=== PATIENT | male | born 1995 | race Hispanic/Latino ===

== ENCOUNTER 2023-06-02 08:17 | Emergency (ER) | payer OTHER, SELFPAY ==
[2023-06-02 08:29] VITALS: BP 139/78; PULSE 85; RESP 26; TEMP 38.1; O2SAT 98
--- NOTE | 2023-06-02 08:32 | ED.ABDPAIN ---
HPI - Abdominal Pain General Chief Complaint: Abdominal Pain Stated Complaint: Abdominal Pain Time Seen by Provider: 06/02/23 08:32 Source: patient Mode of arrival: ambulatory Limitations: no limitations History of Present Illness HPI narrative: 27-year-old M With no significant medical history presents with complaint epigastric, right upper quadrant pain starting at 2:00 a.m.. Patient complains of nausea, bright red blood in stool x2, chills, fatigue. Patient works as a construction assistant. States he recently started drinking more alcohol than usual. Last night he reports that he had 6 shots, approximately 3 cocktails and then a ate several chicken sandwiches from [email or web address]. Patient is pale, bent over holding abdomen an exam room. Denies having any similar episodes of pain. all systems reviewed and negative except as noted above. Related Data Home Medications Medication Instructions Recorded Confirmed No Home Medications 06/02/23 06/02/23 Allergies Allergy/AdvReac Type Severity Reaction Status Date / Time No Known Drug Allergies Allergy Unknown Other Verified 06/02/23 08:27 Review of Systems Review of Systems: CONSTITUTIONAL: Denies fever . Reports chills, or sweats. EYES: Denies visual changes, redness, or discharge. ENT: Denies rhinorrhea, congestion, sore throat, or otalgia. CARDIOVASCULAR: Denies chest pain, palpitations, or edema. RESPIRATORY: Denies cough or dyspnea. GASTROINTESTINAL: reports abdominal pain, nausea, diarrhea with blood in stool. Denies vomiting. GENITOURINARY: Denies dysuria or hematuria. SKIN: Denies rash or itching. MUSCULOSKELETAL: Denies back pain, joint pain, or myalgia. NEUROLOGIC: Denies headache, numbness, or weakness. PSYCHIATRIC: Denies anxiety or depression. All other systems reviewed are negative, except as documented in HPI. PMFSH Comments At time of signature, agree with nursing past medical, surgical, social and family history. There is no relevant family history pertinent to the presenting complaint. Exam Narrative: GENERAL: This is a well-nourished, well-developed patient . patient is ill-appearing and pale, holding abdomen in pain. HEAD: normocephalic, atraumatic. EYES: PERRL. Sclera clear/white. Vision is grossly intact. EARS: External ears normal NOSE: External nose normal NECK: Neck supple, non-tender without lymphadenopathy, masses or thyromegaly. CARDIOVASCULAR: Regular rate and rhythm without murmurs, gallops, or rubs. RESPIRATORY: Clear to auscultation. Breath sounds equal bilaterally. No wheezes, rales, or rhonchi. GASTROINTESTINAL: Abdomen soft, nondistended. tenderness on palpation of epigastric and right upper quadrant. Bowel sounds are active. No hepato-splenomegaly, or palpable masses. SKIN: warm, Dry, intact with no suspicious lesions or rash, good texture and turgor. NEURO: awake, alert, and oriented to person, place and time. There were no obvious focal neurologic abnormalities. EXTREMITIES: No joint tenderness, effusion, or edema noted. Course Course Level of Care: Express Care Visit Vital Signs Vital signs: Vital Signs Temperature 38.1 C H 06/02/23 08:29 Pulse Rate 85 06/02/23 08:29 Respiratory Rate 26 H 06/02/23 08:29 Blood Pressure 139/78 06/02/23 08:29 Pulse Oximetry 98 06/02/23 08:29 Oxygen Delivery Room Air 06/02/23 08:29 Temperature 38.1 C H 06/02/23 08:29 Pulse Rate 85 06/02/23 08:29 Respiratory Rate 26 H 06/02/23 08:29 Blood Pressure 139/78 06/02/23 08:29 Pulse Oximetry 98 06/02/23 08:29 Oxygen Delivery Room Air 06/02/23 08:29 reviewed Transfer Transfered to: [place] Transportation: Other (private car) Transfer rationale: epigastric and RUQ pain with blood in stool, nausea, pale. Needs CT scan, labs rule out pancreatitis, gall stones. Accepting physician: Dr. Martinez MDM - Abdominal Pain MDM Narrative Medical decision making narrative: Patient is aware of diag
== END 2023-06-02 08:42 | disposition short-term general hospital (02) ==
PROVIDERS: Emergency Provider Nurse Practitioner Family
DX: R10.13 Epigastric pain (principal); K92.1 Melena
CPT/HCPCS: 99212; G0463

== ENCOUNTER 2023-06-02 08:59 | Emergency (ER) | payer OTHER, SELFPAY ==
[2023-06-02] VITALS (19 sets, daily range): BP systolic 107–147; BP diastolic 51–80; PULSE 70–90; RESP 15–24; TEMP 36.6–37.8; O2SAT 98–100
--- NOTE | ~2023-06-02 | CT_ITS ---
EXAMINATION: CT abdomen pelvis w con DATE: 06/02/2023 10:15 INDICATION: Abdominal pain TECHNIQUE: Computed tomography (CT) of the abdomen and pelvis was performed with 100 cc Omnipaque 350 intravenous contrast. The dose-length product was 787.97 mGy-cm. Automated exposure control and iter ative reconstruction technique were employed. COMPARISON: None. FINDINGS: Lung bases are unremarkable. Heart size normal. No significant pleural or pericardial effus ion. No significant vascular abnormality. No lymphadenopathy. No free air or free fluid. The liver, spleen, pancreas, adrenal glands and kidneys are unremarkable. Gallbladder is contracted. Nonobstructive bowel pattern. No acute osseous there is mild thickening of the left colon which may b e due to underdistention although mild colitis not excluded. IMPRESSION: 1. Mild thickening of the left: Which may be due to underdistention or mild early colitis. Reviewed, dictated and finalized at location A. IMPRESSION: 1. Mild thickening of the left: Which may be due to underdistention or mild ear ly colitis.
[2023-06-02] MEDS: ONDANSETRON INJ 4 MG/2 ML VIAL IV PUSH (09:37)
[2023-06-02] MEDS: SODIUM CHLORIDE 0.9% IV 2,000 ML 999 ML IV CONT (09:37)
--- NOTE | 2023-06-02 09:40 | ED.ABDPAIN ---
HPI - Abdominal Pain General Chief Complaint: Abdominal Pain Stated Complaint: RUQ pain-sent from Time Seen by Provider: 06/02/23 09:08 Source: patient Mode of arrival: ambulatory Limitations: no limitations History of Present Illness HPI narrative: 27-year-old male presents today with complaints of upper abdominal pain that started last night around 2 to 3:00 in the morning. 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 Did have some nausea and multiple bloody bowel movements per patient. Continued with upper abdominal pain today presented to the ER. Patient denies any medical history of colon issues, stomach issues, or anything similar to this happening in the past. MD elicited complaint: abdominal pain Related Data Allergies Allergy/AdvReac Type Severity Reaction Status Date / Time No Known Drug Allergies Allergy Unknown Other Verified 06/02/23 08:59 Review of Systems Review of Systems: All systems reviewed & are unremarkable except as noted in HPI and below ENT: Reports as per HPI Cardiovascular: Cardiovascular: Reports as per HPI Respiratory: Respiratory: Reports as per HPI Gastrointestinal: Gastrointestinal: Reports as per HPI Musculoskeletal: Musculoskeletal: Reports as per HPI Integumentary/Breasts: Skin/Breast: Reports as per HPI Neurologic: Reports as per HPI Psychiatric: Psychiatric: Reports as per HPI Exam Const: General: cooperative, no acute distress, alert and awake Orientation/consciousness: oriented to person, oriented to place, oriented to time and patient oriented x3 HENMT: Head: normal to inspection Ears: hearing grossly normal bilaterally, external ears normal and TM's normal bilaterally Face/Nose/Sinus: Normal external nose present and Normal nares present Mouth: Yes Normal oral and palatal mucosa present, Yes oropharynx normal and Yes moist mucous membranes Eyes: General: appearance normal, both eyes and all related structures Conjunctivae: conjunctivae normal Pupils: Equal, round and reactive pupils present EOM: EOMs intact bilaterally Neck: Neck: normal visual inspection, full ROM, no lymphadenopathy and trachea midline Chest: Chest palpation & inspection: normal inspection of the chest Resp: Effort & Inspection: normal respiratory effort and able to speak in complete sentences Auscultation: clear to auscultation bilaterally Cardio: Rate: regular rate Rhythm: regular rhythm Heart sounds: S1 normal heart sound present and S2 normal heart sound present GI: Inspection: normal to inspection GI Palp: Yes abdominal tenderness (upper abdomen), Yes Soft to palpation and Yes No hepatosplenomegaly present Auscultation: normal bowel sounds Rectal Exam: heme positive stool and No hemorrhoids Other: rectal completed with RN in room. No blood noted but hemoccult was positive. No external or internal hemorrhoids noted. Skin: General skin exam: normal color and no rashes or lesions noted Neuro: General: oriented to person, oriented to place, oriented to time and patient oriented x3 Cranial nerves: Yes Equal, round and reactive pupils present Speech: normal speech Extrem: General: no pedal edema Psych: Appearance: grossly normal Attitude: cooperative Course Course Emergency Course: Patient with improvement after IV fluids and Zofran. Still with some intermittent abdominal pain. Will treat with dicyclomine. Discussed labs and CT findings with patient aware of possible colitis and will treat with Augmentin. He needs to follow-up with his primary care for further management and any further testing if needed if he continues to have some blood in his stool. Vital Signs Vital signs: Vital Signs Temperature 100.1 F H 06/02/23 09:07 Pulse Rate 88 06/02/23 09:07 Respiratory Rate 18 06/02/23 09:07 Blood Pressure 120/69 06/02/23 09:07 Pulse Oximetry 98 06/02/23 09:07 Oxygen Delivery
[2023-06-02 09:50] LABS: Basophils Absolute Auto 0.1 K/mm3 (0.0-0.1); Basophils Percent Auto 0.4 % (0.2-1.2); Eosinophils Absolute Auto 0.2 K/mm3 (0-0.3); Eosinophils Percent Auto 1.5 % (0-4.4); Hematocrit 47.4 % (42.0-52.0); Immature Granulocyte Absolute 0.03 K/mm3 (0.00-0.031); Immature Granulocyte Percent A 0.2 % (0-0.5); Lymphocytes Absolute Auto 0.96 K/mm3 (0.9-3.2); Lymphocytes Percent Auto 7.8 % (18.3-44.2); Mean Corpuscular HGB Conc 33.8 g/dl (32-36); Mean Corpuscular Hemoglobin 28.7 pg (26-34); Mean Corpuscular Volume 85.1 fl (80-100); Mean Platelet Volume 9.5 fl (7.4-10.4); Monocytes Absolute Auto 0.7 K/mm3 (0.1-0.6); Monocytes Percent Auto 5.8 % (2.6-8.5); Neutrophils Absolute Auto 10.3 K/mm3 (1.3-6.7); Neutrophils Percent Auto 84.3 % (45.5-73.1); Platelet Count Result 235 k/mm3 (150-375); Red Blood Count 5.57 M/mm3 (4.6-6.20); Red Cell Distribution Width 13.1 % (11.5-14.5); White Blood Count 12.3 K/mm3 (4.5-10.0)
[2023-06-02 09:59] LABS: Alanine Aminotransferase 42 U/L (6-50); Albumin Level 4.8 g/dL (3.5-5.1); Alkaline Phosphatase 92 U/L (38-126); Anion Gap 10 mmol/L (8-16); Aspartate Amino Transferase 43 U/L (17-59); Bilirubin,Total 0.7 mg/dL (0.2-1.3); Blood Urea Nitrogen 17 mg/dL (9-20); Calcium 9.4 mg/dL (8.4-10.2); Carbon Dioxide 26 mmol/L (22-30); Chloride 101 mmol/L (98-107); Estimated CRCL calculation 97 ml/min; Estimated Glomerular Filt Rate > 60; Glucose 105 mg/dL (65-110); Lipase 65 U/L (23-300); Potassium 4.2 mmol/L (3.4-5.0); Sodium 137 mmol/L (137-145)
[2023-06-02 10:02] LABS: Prothrombin Time 13.1 Seconds (11.1-14.7)
[2023-06-02 10:03] LABS: Partial Thromboplastin Time 32.2 SECONDS (22.3-36.8)
[2023-06-02 10:59] LABS: Appearance Urine Clear (Clear); Bilirubin Urine Negative (Negative); Blood Urine Negative (Negative); Color Urine Yellow (Yellow); Glucose Urine UA Negative (Negative); Ketones Urine Negative (Negative); Leukocyte Esterase Ur Negative LEU/UL (Negative); Nitrate Urine Negative (Negative); Protein Urine Negative (Negative); Urobilinogen Urine 0.2 mg/dL (<2.0); pH Urine 5.5 (5.0-9.0)
[2023-06-02 11:06] LABS: Specific Grav Ur 1.045 (1.001-1.035)
[2023-06-02 11:07] LABS: Add Urine Microscopic? NO
[2023-06-02] MEDS: DICYCLOMINE HCL 10 MG CAPSULE 20 MG PO (11:35)
== END 2023-06-02 12:20 | disposition home or self-care (01) ==
PROVIDERS: Emergency Provider Nurse Practitioner Family
DX: K52.9 Noninfective gastroenteritis and colitis, unspecified (principal)
CPT/HCPCS: 36415; 74177; 80053; 81003; 83690; 85025; 85610; 85730; 96361; 96374; 99284; A9270; J2405; J7030; Q9967